=== PATIENT | male | born 1955 | race Caucasian/White ===

== ENCOUNTER 2022-09-17 02:35 | Day surgery (SDC) | payer MEDICARE, SELFPAY ==
[2022-09-10 10:14] VITALS: BMI 33.2
--- NOTE | 2022-09-16 11:39 | PM.HPGS ---
History of Present Illness History of Present Illness Consent: Risks, benefits, and alternatives have been discussed and questions answered. Patient agrees to proceed with procedure. Chief complaint: neoplasm screening Narrative: Steve Suarez is a 67 year old male Referred for colon cancer screening. this is his 1st colonoscopy. Review of Systems Review of Systems: All systems reviewed & are unremarkable except as noted in HPI and below PMFSH Past Medical History Medical History Arthritis, hip BPH w urinary obs/LUTS Elevated blood pressure reading Family History Family History Father Diabetes mellitus Family history of cardiovascular disease Family history of chronic obstructive pulmonary disease Mother Hypertension Sibling Family history of malignant neoplasm Social History Social History Smoking packs per day: 0 Smoking cigarettes per day: 0.0 Smoking status: Never smoker Smokeless tobacco user: chewing tobacco Second hand tobacco smoke exposure: No Alcohol intake: current Substance use: current Lack of Transportation: No Lack of Food: Never True Current Housing: I Have Housing Concerned About Future Housing: No Difficulty Paying Gas/Electric Bills: No Difficulty Paying for Meds: No Currently Unemployed: No Education: High School Diploma/GED Difficulty w/ Childcare or Family Care: No Living arrangements: with family Spiritual care concerns: No Meds Home Medications and Allergies Home Medications Medication Instructions Recorded Confirmed Type ibuprofen 200 mg tablet (Advil) 200 mg PO Q6H PRN Pain 07/15/22 09/10/22 History melatonin 5 mg capsule 5 mg PO DAILY 07/15/22 09/10/22 History cclvkgcb-nfs-igjmc 150 mcg-vit K1 1 tablet PO DAILY 07/15/22 09/10/22 History 30 mcg-lycop 300 mcg-lutein tablet (Centrum Men 50 Plus Minis) propranolol 20 mg tablet 20 mg PO Q12H #180 tabs 07/15/22 09/17/22 Rx saw palm 160 mg-vit E 100 1 tablet PO DAILY 09/10/22 09/10/22 History unit-selen 100 dck-xuza-umpdri-pygeum tablet ([facility]state [facility]) Allergies Allergy/AdvReac Type Severity Reaction Status Date / Time No Known Allergies Allergy Verified 09/17/22 10:01 Exam Resp: Auscultation: clear to auscultation bilaterally Cardio: Rate: regular rate Rhythm: regular rhythm GI: GI Palp: Yes Soft to palpation and No Tenderness to palpation present (GI) Assessment and Plan Assessment and plan (1) Colon cancer screening: Code(s): Z12.11 - Encounter for screening for malignant neoplasm of colon Status: Acute Assessment and Plan: Colonoscopy with possible biopsy or polypectomy or cautery or injection of substances.
[2022-09-17 10:02] VITALS: BP 131/75; PULSE 64; RESP 18; TEMP 36.1; O2SAT 97
[2022-09-17] MEDS: LACTATED RINGERS 1,000 ML 150 ML IV CONT (10:13)
--- NOTE | 2022-09-17 10:41 | WPDANESEPPF ---
Anes - Initial Pre Proc Eval Procedure: Operation Date: 09/17/22 11:00 Proposed Procedures p Colonoscopy - Luis Alston MD Date/Time: 09/17/22 10:41 Surgeon: Luis Alston MD Pre Op Diagnosis: neoplasm screening Patient Data Age: 67 Gender: M Height: 1.78 m Weight: 102.8 kg Last Vital Signs Temp 97 F L 09/17/22 10:02 Pulse 64 09/17/22 10:02 Resp 18 09/17/22 10:02 BP 131/75 09/17/22 10:02 Pulse Ox 97 09/17/22 10:02 O2 Del Method Room Air 09/17/22 10:02 Allergies Allergy/AdvReac Type Severity Reaction Status Date / Time No Known Allergies Allergy Verified 09/17/22 10:01 Home Medications Medication Instructions Recorded Confirmed Type ibuprofen 200 mg tablet (Advil) 200 mg PO Q6H PRN Pain 07/15/22 09/10/22 History melatonin 5 mg capsule 5 mg PO DAILY 07/15/22 09/10/22 History nhjqapkj-zum-lhnyk 150 mcg-vit K1 1 tablet PO DAILY 07/15/22 09/10/22 History 30 mcg-lycop 300 mcg-lutein tablet (Centrum Men 50 Plus Minis) propranolol 20 mg tablet 20 mg PO Q12H #180 tabs 07/15/22 09/17/22 Rx saw palm 160 mg-vit E 100 1 tablet PO DAILY 09/10/22 09/10/22 History unit-selen 100 cad-upmg-gdjbeb-pygeum tablet (Prostate Health) Patient hx anesthesia problems: none Family hx anesthesia problems: none Results Review: All pre-operative results and documents have been reviewed as part of the pre-operative evaluation. [facility] Past Medical History Medical History Arthritis, hip BPH w urinary obs/LUTS Elevated blood pressure reading Family History Family History Father Diabetes mellitus Family history of cardiovascular disease Family history of chronic obstructive pulmonary disease Mother Hypertension Sibling Family history of malignant neoplasm Social History Social History Smoking packs per day: 0 Smoking cigarettes per day: 0.0 Smoking status: Never smoker Smokeless tobacco user: chewing tobacco Second hand tobacco smoke exposure: No Alcohol intake: current Substance use: current Lack of Transportation: No Lack of Food: Never True Current Housing: I Have Housing Concerned About Future Housing: No Difficulty Paying Gas/Electric Bills: No Difficulty Paying for Meds: No Currently Unemployed: No Education: High School Diploma/GED Difficulty w/ Childcare or Family Care: No Living arrangements: with family Spiritual care concerns: No Anes - Eval Final PreProcedure Day of Procedure 09/17/22 10:41 Patient weight: obese Heart: regular rate and rhythm Lungs: clear to auscultation Airway: Mallampati scale class II Neurological: alert and oriented Last oral intake: >/= 8 hours ASA classification: II Emergent: no Anesthetic plan: proceed Anesthesia type and monitoring: general GIVS and standard monitoring Results Review: All pre-operative results and documents have been reviewed as part of the pre-operative evaluation. Informed Consent: The patient's anesthetic plan and its attendant risks and benefits were discussed with the patient/family/POA. Questions were solicited and answers provided to the satisfaction of the patient/family/POA.
[2022-09-17] MEDS: SIMETHICONE ORAL SUSPENSION 20 MG/0.3 ML 30 ML BOTTLE 0.6 ML IRRIGATION (10:56)
[2022-09-17 11:07] VITALS: BP 102/61; PULSE 62; RESP 12; O2SAT 96
[2022-09-17 11:17] VITALS: BP 114/62; PULSE 59; RESP 12; O2SAT 97
[2022-09-17 11:27] VITALS: BP 112/64; PULSE 62; RESP 16; O2SAT 98
== END 2022-09-17 11:32 | disposition home or self-care (01) ==
PROVIDERS: PCP Family Medicine; Visit Provider Internal Medicine Gastroenterology
PROC: 0DJD8ZZ Inspection of Lower Intestinal Tract, Via Natural or Artificial Opening Endoscopic (ICD-10-PCS; CPT 45378; principal; 2022-09-17 11:00)
DX: Z12.11 Encounter for screening for malignant neoplasm of colon (principal); K57.30 Diverticulosis of large intestine without perforation or abscess without bleeding; K64.8 Other hemorrhoids; E66.9 Obesity, unspecified; Z68.32 Body mass index [BMI] 32.0-32.9, adult
CPT/HCPCS: G0121; J2704; J7120

== ENCOUNTER 2022-11-18 08:25 | Outpatient (CLI) | payer MEDICARE, SELFPAY | END 2022-11-18 08:26 | disposition home or self-care (01) | LOC: ANHSURGERY 08:29 | PROVIDERS: PCP Family Medicine; Visit Provider Surgery | DX: K40.90 Unilateral inguinal hernia, without obstruction or gangrene, not specified as recurrent (principal); Z01.818 Encounter for other preprocedural examination | CPT/HCPCS: 36415; 86850; 86900; 86901 ==

== ENCOUNTER 2022-11-23 03:10 | Day surgery (SDC) | payer MEDICARE, SELFPAY ==
[2022-11-15 11:04] VITALS: BMI 32.4
--- NOTE | 2022-11-15 11:13 | PC.NURSE ---
PRE-OP INSTRUCTIONS, PLEASE READ CAREFULLY Report to the Outpatient Waiting Room, entrance under the green pavilion located off [facility], at time _1000_ on date _11/23/22_. Planned Procedure Time: _1200_. Time changes happen often and if your time is changed the preop area will call you the afternoon before. - You and your visitor will be asked to self-screen and do not enter if you have any COVID symptoms. - A mask is optional within the hospital at this time. Patients may have clear liquids (water, carbonated beverages, clear teas, apple juice) until 3 hours prior to surgery with a maximum of 20 ounces. - No food from midnight until time of surgery Take the following medications with a SIP of water the morning of surgery: _PROPRANOLOL, SERTRALINE_ DO NOT STOP ANY OF YOUR OTHER PRESCRIPTION MEDICATIONS PRIOR TO SURGERY ?EXCEPT THE FOLLOWING Medications to discontinue - _IBUPROFEN/ADVIL PER DR. JACKSON'S INSTRUCTIONS Medications to discontinue ANESTHESIA -_MULTIVITAMIN 3 DAYS PRIOR TO SURGERY, Date to take last dose 11/19/22_ Please no make-up, nail grenadian, hairspray, perfume, deodorant, or body powder the day of surgery. No jewelry (including any body piercings) or valuables the day of surgery, leave them at home. Please take a shower or bath the night before, or the morning of, surgery with an antibacterial soap. Wear comfortable, loose fitting clothing. - Jewelry must be removed prior to entering the operating room. Rings and piercings that are not removed may be cut off. - The hospital will not accept responsibility for valuables. - Please leave all valuables, including medications, at home the day of surgery. If you are going home after surgery, a licensed tier truck driver must drive you home. - NO public transportation without another adult if you receive anesthesia. - We recommend that an adult stay with you for 24 hours following discharge. - We also recommend that you do not drive, make important decision, drink alcoholic beverages, or take any drugs that were not prescribed by your health care provider for at least 24 hours after your discharge time. Follow any additional instructions given to you from your surgeon. If you or anyone in your household have experienced Covid symptoms in the past week, please notify your surgeon or the nurse liaison at the phone number below for possible testing. Telephone instructions given to _PATIENT_ and asked if any additional questions and then verbalized understanding. Patient advised to call surgeon office or pre surgery nurse liaison [phone] if any additional questions.
[2022-11-23] VITALS (8 sets, daily range): BP systolic 118–153; BP diastolic 62–95; PULSE 58–72; RESP 11–20; TEMP 37; O2SAT 93–100
[2022-11-23] MEDS: LACTATED RINGERS 1,000 ML 30 ML IV CONT ×2 (10:50→16:31)
[2022-11-23] MEDS: KETOROLAC 15 MG/ML VIAL (*BKC) IV PUSH ×2 (12:10→16:07)
[2022-11-23] MEDS: ACETAMINOPHEN 500 MG TABLET 1000 MG PO (12:10)
--- NOTE | 2022-11-23 12:16 | WPDANESEPPF ---
Anes - Initial Pre Proc Eval Procedure: Operation Date: 11/23/22 12:00 Proposed Procedures p Robotic Assisted Laparoscopic Left Inguinal Hernia Repair with Mesh, Possible Right Inguinal Hernia Repair - Kam Grier MD Date/Time: 11/23/22 12:16 Surgeon: Kam Grier MD Pre Op Diagnosis: Reducible Left Ing Hernia Patient Data Age: 67 Gender: M Height: 1.78 m Weight: 107.1 kg Last Vital Signs Pulse 58 L 11/23/22 11:00 Resp 18 11/23/22 11:00 BP 128/86 11/23/22 11:00 Pulse Ox 97 11/23/22 11:00 O2 Del Method Room Air 11/23/22 11:00 Allergies Allergy/AdvReac Type Severity Reaction Status Date / Time No Known Allergies Allergy Verified 11/23/22 10:29 Home Medications Medication Instructions Recorded Confirmed Type ibuprofen 200 mg tablet (Advil) 200 mg PO Q6H PRN Pain 07/15/22 11/23/22 History melatonin 5 mg capsule 5 mg PO DAILY 07/15/22 11/23/22 History zxokufko-vtd-nyigp 150 mcg-vit K1 1 tablet PO DAILY 07/15/22 11/23/22 History 30 mcg-lycop 300 mcg-lutein tablet (Centrum Minis Men 50 Plus) propranolol 60 mg capsule,24 60 mg PO DAILY #90 caps 10/21/22 11/23/22 Rx hr,extended release sertraline 25 mg tablet 25 mg PO DAILY #90 tabs 10/21/22 11/23/22 Rx sildenafil 100 mg tablet (Viagra) 100 mg PO DAILY PRN sexual 10/21/22 11/23/22 Rx activity #10 tabs Patient hx anesthesia problems: none Family hx anesthesia problems: none Results Review: All pre-operative results and documents have been reviewed as part of the pre-operative evaluation. [facility] Past Medical History Medical History Anxiety disorder, unspecified Arthritis, hip BPH w urinary obs/LUTS Elevated blood pressure reading Surgical History Surgical History History of left hip replacement History of tonsillectomy Hx of right inguinal hernia repair Right inguinal hernia repair with mesh 1978 Family History Family History Father Diabetes mellitus Family history of cardiovascular disease Family history of chronic obstructive pulmonary disease Mother Hypertension Sibling Family history of malignant neoplasm Social History Social History Smoking packs per day: 0 Smoking cigarettes per day: 0.0 Smoking status: Never smoker Tobacco type: smokeless tobacco Smokeless tobacco user: chewing tobacco Second hand tobacco smoke exposure: No Alcohol intake: never Substance use: never Substance use type: does not use Lack of Transportation: No Lack of Food: Never True Current Housing: I Have Housing Concerned About Future Housing: No Difficulty Paying Gas/Electric Bills: No Difficulty Paying for Meds: No Currently Unemployed: No Education: High School Diploma/GED Difficulty w/ Childcare or Family Care: No Living arrangements: with family Spiritual care concerns: No Anes - Eval Final PreProcedure Day of Procedure 11/23/22 12:16 Patient weight: obese Heart: regular rate and rhythm Lungs: clear to auscultation Airway: Mallampati scale class III Neurological: alert and oriented Last oral intake: >/= 8 hours ASA classification: II Emergent: no Anesthetic plan: proceed Anesthesia type and monitoring: general ETT and standard monitoring Results Review: All pre-operative results and documents have been reviewed as part of the pre-operative evaluation. Informed Consent: The patient's anesthetic plan and its attendant risks and benefits were discussed with the patient/family/POA. Questions were solicited and answers provided to the satisfaction of the patient/family/POA.
--- NOTE | 2022-11-23 12:33 | WPDHPUPDATE1 ---
History and Physical Update Update Date/Time: 11/23/22 12:33 History and Physical has been reviewed, including an updated exam of the patient. There are NO changes in the patient's condition. Risks, benefits, and alternatives have been discussed and questions answered. Patient agrees to proceed with procedure.
[2022-11-23] MEDS: ceFAZolin 2 GM/D5W 50 ML 2 GM/50 ML BAG IVPB (13:22)
[2022-11-23] MEDS: BUPivacaine HCL 0.5% 10 ML AMP 15 ML INFILTRATE (14:28)
[2022-11-23] MEDS: LIDO 1%/EPINEPHRINE 1:100,000 50 ML VIAL 15 ML INFILTRATE (14:30)
--- NOTE | 2022-11-23 16:29 | PM.OP ---
Procedure Note - Brief Procedure Note - Brief Date of procedure: 11/23/22 Reducible Left Ing Hernia Post-op diagnosis: Other (Incarcerated indirect left inguinal hernia) Procedure performed: Robotic assisted laparoscopic incarcerated left inguinal hernia repair with Bard 3D mid weight mesh Surgeon: Kam Grier MD Anesthesia: GETA Findings: Incarcerated omentum within large indirect left inguinal hernia. Omentum viable. A large cord lipoma Implants: Large left-sided Bard 3D mid weight mesh [id number] Estimated blood loss (mL): 30 Drains: No Packing: No Pathology: None sent Complications: No immediate complications Condition: Stable Disposition: PACU
[2022-11-23] MEDS: oxyCODONE HCL (*CRX) 5 MG TAB IR PO (17:50)
--- NOTE | 2022-11-23 18:41 | W.PM.PROC2 ---
Procedure Note - Detailed Date of Procedure 11/23/22 Pre-op Diagnosis Reducible Left Ing Hernia Post-op Diagnosis Other (Incarcerated indirect left inguinal hernia) Procedure Performed robotic assisted laparoscopic incarcerated left inguinal hernia repair with Bard 3D mid weight mesh Surgeon Kam Grier MD Aerospace Quality Engineer Anatoly GALLEGOS, Basilia GALLGEOS Anesthesia General Indications patient is a 67-year-old gentleman who presented with an enlarging bulge in his left groin region. On examination he had a left inguinal hernia. He presents now for elective repair with mesh reinforcement. Findings Patient had a large indirect left inguinal hernia with incarcerated viable omentum within the hernia sac. Patient also had a large cord lipoma. Description of Procedure After informed consent was obtained patient brought to the operating room was placed supine position and general endotracheal anesthesia was administered. The abdomen and the bilateral groin regions were then prepped and draped usual sterile fashion. A time-out was then performed correctly identifying the patient as well as procedure to be performed verifying the site marking. He was given perioperative IV antibiotics. First entered the abdomen left upper quadrant utilizing a 10mm Optiview port. Once inside the abdomen insufflated to adequate pneumoperitoneum 15mmHg of CO2. Across the mid abdomen I then placed additional robotic trocar ports under direct visualization. Looking down into the pelvis I saw a large indirect left inguinal hernia with omentum incarcerated within the hernia sac. There was no evidence of a recurrent right inguinal hernia. The patient was then placed in the Trendelenburg position to have the small-bowel fall out of the pelvis. I then docked the DA Janett robot over the patient and attached the robotic arms the robotic ports. Robotic instruments were then advanced into the abdomen under direct visualization. I then scrubbed out and sat down at the console to perform the dissection robotically. I started by reducing the incarcerated omentum within the hernia sac. This was done with robotic hook dissection. Once the omentum was reduced it appeared to be viable was hemostatic. I then created a preperitoneal flap starting anterior medial to the left anterior superior iliac spine extending across the lower abdomen towards the midline. I continued dissection is preperitoneal plane taking down this peritoneal flap and divided the left median umbilical ligament. I dissected distally preperitoneal plane into identified the pubic tubercle on the left side. I continued to dissect down into the space of Retzius for couple of cm. I then dissected more laterally from the pubic tubercle and identified the hernia sac and dissected this out of the indirect left inguinal hernia. This was a very large sac and associated with the hernia was a very large cord lipoma. The cord lipoma was dissected free of the other cord structures and resected. It was placed out of the visual field to be removed at the end the procedure. Identified the vas deferens and testicular vessels. These were done dissected free of the hernia sac which was then everted. I dissected the peritoneum up onto the psoas muscle. I then proceeded to choose a piece of Bard 3D mid weight mesh measuring 16cm in length by 10cm in width. It was oriented for the left side. It was introduced into the abdomen through the bedside assistant broker port in the left upper quadrant. It was then opened up and placed into the dissected space which fit nicely. The lower edge of the mesh extended down into the space of Retzius. When I pulled up the peritoneal flap the lower edge the mesh did not roll up with the flap. I then proceeded to secure the mesh medially to the tissues around the pubic tubercle utilizing a 2-0 Vicryl suture placed robotically with suturing. Laterally anterior medial to the left anterior superior iliac spin
--- NOTE | 2022-11-23 18:49 | SUR.PHASEII ---
1830- Pt voided in out pt recovery.
== END 2022-11-23 19:09 | disposition home or self-care (01) ==
PROVIDERS: PCP Family Medicine; Visit Provider Surgery
PROC: 8E0Y4CZ Robotic Assisted Procedure of Lower Extremity, Percutaneous Endoscopic Approach (ICD-10-PCS; CPT 49650; principal; 2022-11-23 12:00)
DX: K40.30 Unilateral inguinal hernia, with obstruction, without gangrene, not specified as recurrent (principal); D17.6 Benign lipomatous neoplasm of spermatic cord; F41.9 Anxiety disorder, unspecified; F17.220 Nicotine dependence, chewing tobacco, uncomplicated; E66.9 Obesity, unspecified; Z68.33 Body mass index [BMI] 33.0-33.9, adult
CPT/HCPCS: 49650; S2900; 36415; 86850; 86900; 86901; A9270; C1781; J0330; J0461; J0690; J1100; J1170; J1885; J2250; J2405; J2704; J3010; J7120

== ENCOUNTER 2023-04-09 17:27 | Emergency (ER) | payer MEDICARE, SELFPAY | END 2023-04-09 17:30 | disposition left against medical advice (07) | LOC: EXPGOSH 17:29 | PROVIDERS: Emergency Provider Nurse Practitioner Family; PCP Family Medicine | DX: Z53.21 Procedure and treatment not carried out due to patient leaving prior to being seen by health care provider (principal) | CPT/HCPCS: 99199 ==

== ENCOUNTER 2024-11-27 11:29 | Emergency (ER) | payer MEDICARE, SELFPAY ==
--- NOTE | ~2024-11-27 | XR_ITS ---
X-rays right ankle Indication: Pain, twisting injury Comparison: None Technique: 4 views right ankle Findings/Impression: No acute findings- 1. No acute fracture or dislocation right ankle. 2. Small probable chronic avulsion fracture medial malleolus. 3. Mild hindfoot degenerative changes. 4. Moderate midfoot degenerative changes. 5. Calcaneal spurs at insertion sites of plantar fascia and Achilles tendon. Reviewed, dictated and finalized at location R.
[2024-11-27 12:01] VITALS: BP 145/88; PULSE 56; RESP 16; TEMP 36.2; O2SAT 99
--- NOTE | 2024-11-27 13:51 | ED.GENADULT ---
HPI - General Adult General Chief complaint: Extremity Injury, Lower Stated complaint: R Ankle Pain Source: patient Mode of arrival: ambulatory Limitations: no limitations History of Present Illness HPI narrative: Pt presents for evaluation of right ankle pain. He was experiencing pain in his right foot that started about a month ago. He thought his symptoms were related to plantar fasciitis. About one to two weeks ago he was bringing heavy bags from the store into his house and he twisted his ankle in the process. He developed pain in the lateral aspect of the ankle at that time. Yesterday he injured the ankle again when he stepped on a stair wrong. He has no pain at rest but states with certain movements he experiences 4/10 pain in the affected joint. No loss of ROM and denies paresthesias. Related Data Home Medications ?Medication ?Instructions ?Recorded ?Confirmed ?Last Taken ?Type ibuprofen 200 mg tablet (Advil) 200 mg PO Q6H PRN Pain 07/15/22 02/24/24 Unknown History melatonin 5 mg capsule 5 mg PO DAILY 07/15/22 02/24/24 Unknown History nvqlcisg-hly-qgerq 150 mcg-vit K1 1 tablet PO DAILY 07/15/22 02/24/24 Unknown History 30 mcg-lycop 300 mcg-lutein tablet (Centrum Minis Men 50 Plus) Allergies Allergy/AdvReac Type Severity Reaction Status Date / Time No Known Allergies Allergy Verified 06/14/24 11:39 Review of Systems Review of Systems: CONSTITUTIONAL: Denies fever, chills, or sweats. EYES: Denies visual changes, redness, or discharge. ENT: Denies rhinorrhea, congestion, sore throat, or otalgia. CARDIOVASCULAR: Denies chest pain, palpitations, or edema. RESPIRATORY: Denies cough or dyspnea. GASTROINTESTINAL: Denies abdominal pain, nausea, vomiting, or diarrhea. GENITOURINARY: Denies dysuria or hematuria. SKIN: Denies rash or itching. MUSCULOSKELETAL: Reports right ankle pain and swelling NEUROLOGIC: Denies headache, numbness, dizziness, or weakness. PSYCHIATRIC: Denies anxiety or depression. [facility] Past Medical History Medical History BPH w urinary obs/LUTS Elevated blood pressure reading Arthritis, hip Anxiety disorder, unspecified Surgical History Surgical History History of tonsillectomy Hx of right inguinal hernia repair Right inguinal hernia repair with mesh 1978 History of left hip replacement Family History Family History Father Diabetes mellitus Family history of cardiovascular disease Family history of chronic obstructive pulmonary disease Mother Hypertension Sibling , oral cancer 2024 Family history of malignant neoplasm Oral cancer Social History Social History Smoking packs per day: 0 Smoking cigarettes per day: 0.0 Smoking status: Never smoker Second hand tobacco smoke exposure: No Alcohol intake: never Substance use: never Substance use type: does not use Lack of Transportation: No Lack of Food: Never True Current Housing: I Have Housing Concerned About Future Housing: No Difficulty Paying Gas/Electric Bills: No Difficulty Paying for Meds: No Currently Unemployed: No Education: High School Diploma/GED Difficulty w/ Childcare or Family Care: No Living arrangements: with family Spiritual care concerns: No Exam Narrative: GENERAL: Well-appearing, well-nourished, and in no acute distress. HEAD: Normocephalic, atraumatic. EYES: PERRLA and EOMI. ENT: Nares clear, no rhinorrhea or epistaxis. Mucous membranes moist. Oropharynx without tonsillar hypertrophy exudate or other lesions. Bilateral TMs pearly silva nonbulging NECK: Supple. No adenopathy or masses. No carotid bruits or JVD CHEST: Clear to auscultation. No respiratory distress. No wheezes rales or rhonchi HEART: Regular rate and rhythm. No murmur heard. Normal peripheral pulses. ABDOMEN: Soft, nontender, nondistended, normal active bowel sounds. EXTREMITIES: there is tenderness just inferior to the right lateral ankle. There is trace swelling present. He is able to dorsi and plantarflex the right foot without difficulty SKIN: Warm, dry, no rash. NEURO: No focal deficits. Alert and oriented x3. PSYCH: Normal mood and affect. Course Course Level of Care: Express Care Visit Vital Signs Vital signs: Vital Signs Temperature 36.2 C L 11/27/24 12:01 Pulse Rate 56 L 11/27/24 12:01 Respiratory Rate 16 11/27/24 12:01 Blood Pressure 145/88 H 11/27/24 12:01 Pulse Oximetry 99 11/27/24 12:01 Temperature 36.2 C L 11/27/24 12:01 Pulse Rate 56 L 11/27/24 12:01 Respiratory Rate 16 11/27/24 12:01 Blood Pressure 145/88 H 11/27/24 12:01 Pulse Oximetry 99 11/27/24 12:01 Medical Decision Making MDM Narrative Medical decision making narrative: This is a 69-year-old male who presented for evaluation of right ankle pain and swelling. X ray with degenerative changes, bone spurs and chronic avulsion fracture of medial malleolus. Pt has no tenderness in medial ankle so this appears old. She is provided with an Homero wrap. I recommended he purchase a velcro ankle stirrup splint. NSAIDs for pain. Advised on RICE therapy. Follow up with primary provider. Go to the ER for worsening symptoms. Pt in agreement with plan of care. Vital Signs Vital Signs: Vital Signs Temperature 36.2 C L 11/27/24 12:01 Pulse Rate 56 L 11/27/24 12:01 Respiratory Rate 16 11/27/24 12:01 Blood Pressure 145/88 H 11/27/24 12:01 Pulse Oximetry 99 11/27/24 12:01 Temperature 36.2 C L 11/27/24 12:01 Pulse Rate 56 L 11/27/24 12:01 Respiratory Rate 16 11/27/24 12:01 Blood Pressure 145/88 H 11/27/24 12:01 Pulse Oximetry 99 11/27/24 12:01 Imaging Data Radiologist's impression: X-rays right ankle Indication: Pain, twisting injury Comparison: None Technique: 4 views right ankle Findings/Impression: No acute findings- 1. No acute fracture or dislocation right ankle. 2. Small probable chronic avulsion fracture medial malleolus. 3. Mild hindfoot degenerative changes. 4. Moderate midfoot degenerative changes. 5. Calcaneal spurs at insertion sites of plantar fascia and Achilles tendon. Discharge Plan Discharge Clinical Impression: Right ankle sprain Patient Disposition: Home Condition: Stable Instructions: Antibiotic Form, Ankle Sprain (DC) Additional Instructions: APPLY ICE NEEDED FOR PAIN AND SWELLING DICLOFENAC GEL MAY HELP REDUCE YOUR PAIN. THIS CAN BE PURCHASED OVER THE COUNTER IF YOU WOULD PREFER ORAL PAIN MEDICATION, IBUPROFEN IS OFTEN EFFECTIVE PLEASE PURCHASE AND WEAR A VELCRO ANKLE STIRRUP SPLINT-THIS CAN BE PURCHASED AT THE PHARMACY PLEASE FOLLOW UP WITH YOUR PRIMARY CARE PROVIDER OR ORTHOPEDICS TO ENSURE NO FURTHER TESTING IS NECESSARY Patient Language: Greenlandic Prescriptions: No Action ibuprofen [Advil] 200 mg tablet 200 mg PO Q6H PRN (Reason: Pain) Centrum Minis Men 50 Plus [id number] mcg tablet 1 tablet PO DAILY melatonin 5 mg capsule 5 mg PO DAILY diazepam [Valium] 5 mg tablet 2.5 mg PO BID Qty: 90 1RF sertraline 50 mg tablet 100 mg PO DAILY Qty: 180 1RF propranolol 80 mg capsule,extended release 24 hr 80 mg PO DAILY Qty: 90 1RF Follow-up/Referrals: Jerry Barrett MD [Physician, Orthopedics] Cabrera Dubon MD [Primary Care Provider, Family Practice] Time of Disposition: 13:49
== END 2024-11-27 13:52 | disposition home or self-care (01) ==
PROVIDERS: Emergency Provider Nurse Practitioner; PCP Family Medicine
DX: S93.401A Sprain of unspecified ligament of right ankle, initial encounter (principal); X50.9XXA Other and unspecified overexertion or strenuous movements or postures, initial encounter; N40.1 Benign prostatic hyperplasia with lower urinary tract symptoms; F41.9 Anxiety disorder, unspecified
CPT/HCPCS: 73610; 99213; G0463

== ENCOUNTER 2025-01-05 18:20 | Emergency (ER) | payer MEDICARE, SELFPAY ==
[2025-01-05 18:33] VITALS: BP 137/77; PULSE 70; RESP 16; TEMP 36.3; O2SAT 98
--- NOTE | 2025-01-05 18:42 | ED.URI ---
HPI - URI/Sore Throat General Chief Complaint: Upper Respiratory Infection Stated Complaint: COLD SYMPTOMS Time Seen by Provider: 01/05/25 18:29 Source: patient and RN notes reviewed Mode of arrival: ambulatory Limitations: no limitations History of Present Illness HPI Narrative: 69-year-old male patient presents today complaining of 2.5 week history of cough and chest congestion. Denies shortness of breath, fever, upper respiratory symptoms. States, ?I feel fine except for the cough. ? He has tried NyQuil and Mucinex DM with little improvement. Cough is worse when lying flat. No history of asthma or COPD. Related Data Home Medications ?Medication ?Instructions ?Recorded ?Confirmed ?Last Taken ?Type ibuprofen 200 mg tablet (Advil) 200 mg PO Q6H PRN Pain 07/15/22 01/05/25 Unknown History melatonin 5 mg capsule 5 mg PO DAILY 07/15/22 01/05/25 Unknown History [id number]-[id number] 150 mcg-vit K1 1 tablet PO DAILY 07/15/22 01/05/25 Unknown History 30 mcg-lycop 300 mcg-lutein tablet (Centrum Minis Men 50 Plus) Allergies Allergy/AdvReac Type Severity Reaction Status Date / Time No Known Allergies Allergy Verified 01/05/25 18:30 [facility] Past Medical History Medical History BPH w urinary obs/LUTS Elevated blood pressure reading Arthritis, hip Anxiety disorder, unspecified Surgical History Surgical History History of tonsillectomy Hx of right inguinal hernia repair Right inguinal hernia repair with mesh 1978 History of left hip replacement Family History Family History Father Diabetes mellitus Family history of cardiovascular disease Family history of chronic obstructive pulmonary disease Mother Hypertension Sibling , oral cancer 2024 Family history of malignant neoplasm Oral cancer Social History Social History Smoking packs per day: 0 Smoking cigarettes per day: 0.0 Smoking status: Never smoker Second hand tobacco smoke exposure: No Alcohol intake: never Substance use: never Substance use type: does not use Lack of Transportation: No Lack of Food: Never True Current Housing: I Have Housing Concerned About Future Housing: No Difficulty Paying Gas/Electric Bills: No Difficulty Paying for Meds: No Currently Unemployed: No Education: High School Diploma/GED Difficulty w/ Childcare or Family Care: No Living arrangements: with family Spiritual care concerns: No Comments At time of signature, I have reviewed and agree with nursing past medical, surgical, social and family history unless otherwise noted. Please see nursing chart for further information. There is no relevant family history pertinent to the presenting complaint Exam Narrative: GENERAL: Well-appearing, well-nourished, and in no acute distress. HEAD: Normocephalic, atraumatic. EYES: EOMI. No redness or drainage. Conjunctivae normal. ENT: Mucous membranes pink and moist. Nares clear. No rhinorrhea. TMs normal bilaterally. Throat normal. Uvula midline. NECK: Normal AROM. Supple. No lymphadenopathy. CHEST: No respiratory distress. Clear to auscultation. HEART: Regular rate and rhythm. No murmur appreciated. EXTREMITIES: Normal range of motion. No edema. SKIN: Warm, dry, no rash. Capillary refill normal. Normal skin turgor. NEURO: No focal deficits. Alert and oriented x3. Gait steady. PSYCH: Normal affect. No signs of depression or anxiety. Course Course Level of Care: Express Care Visit Vital Signs Vital signs: Vital Signs Temperature 97.4 F L 01/05/25 18:33 Pulse Rate 70 01/05/25 18:33 Respiratory Rate 16 01/05/25 18:33 Blood Pressure 137/77 01/05/25 18:33 Pulse Oximetry 98 01/05/25 18:33 Temperature 97.4 F L 01/05/25 18:33 Pulse Rate 70 01/05/25 18:33 Respiratory Rate 16 01/05/25 18:33 Blood Pressure 137/77 01/05/25 18:33 Pulse Oximetry 98 01/05/25 18:33 Reviewed MDM - URI/Sore Throat MDM Narrative Medical decision making narrative: 69-year-old male patient presents today complaining of 2.5 week history of cough and chest congestion. Denies shortness of breath, fever, upper respiratory symptoms. States, ?I feel fine except for the cough. ? He has tried NyQuil and Mucinex DM with little improvement. Cough is worse when lying flat. Normal physical exam. Cough symptoms to bronchitis, likely post viral. Will treat with prednisone and Tessalon Perles. Patient agrees with plan. Vital signs stable. Anticipatory guidance and ED precautions given. Differential Diagnosis Differential diagnosis: Likely upper respiratory infection, viral infection, bronchitis and other (Pneumonia) Critical Care Time Critical Care Time Critical Care Time: No Discharge Plan Discharge Clinical Impression: Bronchitis Patient Disposition: Home Condition: Stable Instructions: Acute Bronchitis (ED) Additional Instructions: Please take the prednisone and Tessalon Perles as directed. Follow-up with your PCP in 3-4 days if symptoms are not improving. As discussed, if symptoms worsen to include development of new fever greater than 100.3, chest pain, shortness of breath, please go to the ER for further evaluation. Patient Language: Tajik Prescriptions: New benzonatate 200 mg capsule 200 mg PO TID PRN (Reason: cough) Qty: 20 0RF prednisone 20 mg tablet 40 mg PO DAILY 5 Days Qty: 10 0RF No Action ibuprofen [Advil] 200 mg tablet 200 mg PO Q6H PRN (Reason: Pain) Centrum Minis Men 50 Plus [id number] mcg tablet 1 tablet PO DAILY melatonin 5 mg capsule 5 mg PO DAILY sertraline 50 mg tablet 100 mg PO DAILY Qty: 180 1RF propranolol 80 mg capsule,extended release 24 hr 80 mg PO DAILY Qty: 90 1RF diazepam [Valium] 5 mg tablet 2.5 mg PO BID Qty: 90 1RF Follow-up/Referrals: Cabrera Dubon MD [Primary Care Provider, [facility]] Time of Disposition: 18:50
== END 2025-01-05 18:55 | disposition home or self-care (01) ==
PROVIDERS: Emergency Provider Nurse Practitioner; PCP Family Medicine
DX: J40 Bronchitis, not specified as acute or chronic (principal); N40.1 Benign prostatic hyperplasia with lower urinary tract symptoms; F41.9 Anxiety disorder, unspecified; Z96.642 Presence of left artificial hip joint
CPT/HCPCS: 99213; G0463